=== PATIENT | male | born 1985 | race Caucasian/White ===

== ENCOUNTER 2017-01-02 04:28 | Emergency (ER) | payer OTHER | END 2017-01-02 09:40 | disposition other institution (70) | LOC: ER 04:28 | DX: J18.9 Pneumonia, unspecified organism (principal); I11.0 Hypertensive heart disease with heart failure; I50.9 Heart failure, unspecified; I26.99 Other pulmonary embolism without acute cor pulmonale; J90 Pleural effusion, not elsewhere classified; L03.113 Cellulitis of right upper limb; Q23.1 Congenital insufficiency of aortic valve; E78.5 Hyperlipidemia, unspecified; F17.210 Nicotine dependence, cigarettes, uncomplicated; Z95.1 Presence of aortocoronary bypass graft; Z79.82 Long term (current) use of aspirin; Z79.899 Other long term (current) drug therapy; Z88.0 Allergy status to penicillin | CPT/HCPCS: 36415; 96361; 96365; 96366; 96367; 96375; 96376; J1650; J2550; J3370; Q9967 ==